=== PATIENT | male | born 1975 | race Caucasian/White ===

== ENCOUNTER 2022-01-16 16:57 | Inpatient (IN) | payer BC, MEDICARE ==
[~2022-01-16] VITALS: Ht 175.3 cm; Wt 143.3 kg
[~2022-01-16 16:57] MED LIST: ATORVASTATIN CA20 MG PO; BRILINTA 90 MG90 MG PO; COZAAR 25MG TAB25 MG PO; ECOTRIN81 MG PO; LOPRESSOR 25 MG25 MG PO; NICOTINE PATCH1 EAC1 TOP; PRINIVIL5 MG PO; PROTONIX40 MG PO
[2022-01-16 18:37] LABS: HEMOGLOBIN 12.6 gm/dl (14.0-17.5); RED BLOOD COUNT 5.03 M/UL (4.20-5.50); WHITE BLOOD COUNT 8.5 K/UL (4.5-11.0)
[2022-01-17 05:55] LABS: HEMOGLOBIN 13.2 gm/dl (14.0-17.5); RED BLOOD COUNT 5.26 M/UL (4.20-5.50); WHITE BLOOD COUNT 9.9 K/UL (4.5-11.0)
[2022-01-17 06:18] LABS: BUN/CREATININE RATIO 18 (0-10)
[2022-01-17] MEDS ORDERED: CLOPIDOGREL75 MG PO (12:11)
[2022-01-17] MEDS ORDERED: REPATHA SY140 MG/1 M SQ (12:14)
[2022-01-17] MEDS ORDERED: LOSARTAN POTASS25 MG PO (12:19)
[2022-01-17] MEDS ORDERED: METOPROLOL TART25 MG PO (12:19)
[2022-01-17] MEDS ORDERED: METHOCARBAMOL500 MG PO (12:20)
[2022-01-18 06:37] LABS: BUN/CREATININE RATIO 19 (0-10)
--- NOTE | 2022-01-18 13:51 | NUR ---
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
[2022-01-19 06:47] LABS: HEMOGLOBIN 13.1 gm/dl (14.0-17.5); RED BLOOD COUNT 5.26 M/UL (4.20-5.50); WHITE BLOOD COUNT 10.1 K/UL (4.5-11.0)
[2022-01-19 07:08] LABS: BUN/CREATININE RATIO 19 (0-10)
[2022-01-19] MEDS ORDERED: COZAAR 50MG TAB50 MG PO (12:38)
[2022-01-19] MEDS ORDERED: FUROSEMIDE40 MG PO (12:38)
[2022-01-19] MEDS ORDERED: ALDACTONE 25MG25 MG PO (12:38)
[2022-01-19] MEDS ORDERED: METOPROLOL SUC100 MG PO (12:38)
== END 2022-01-19 14:43 | disposition home or self-care (01) | DRG 291 ==
LOC: ER1 16:57 → CDU 20:40 → MED SURG 4 20:40
PROVIDERS: Internal Medicine; Physician Assistant; Preventive Medicine Occupational Medicine; ADMIT Internal Medicine
PROC: B24BZZZ Ultrasonography of Heart with Aorta (ICD-10-PCS; principal; 2022-01-17)
DX: I13.0 Hypertensive heart and chronic kidney disease with heart failure and stage 1 through stage 4 chronic kidney disease, or unspecified chronic kidney disease (principal); I50.43 Acute on chronic combined systolic (congestive) and diastolic (congestive) heart failure; Z20.822 Contact with and (suspected) exposure to COVID-19; I47.1 Supraventricular tachycardia; N17.9 Acute kidney failure, unspecified; Z68.42 Body mass index [BMI] 45.0-49.9, adult; E87.6 Hypokalemia; I27.20 Pulmonary hypertension, unspecified; G47.33 Obstructive sleep apnea (adult) (pediatric); I25.5 Ischemic cardiomyopathy; E78.5 Hyperlipidemia, unspecified; E66.01 Morbid (severe) obesity due to excess calories; I25.10 Atherosclerotic heart disease of native coronary artery without angina pectoris; F17.210 Nicotine dependence, cigarettes, uncomplicated; Z95.5 Presence of coronary angioplasty implant and graft; Z79.01 Long term (current) use of anticoagulants; Z79.82 Long term (current) use of aspirin; Z87.81 Personal history of (healed) traumatic fracture; Z98.890 Other specified postprocedural states; Z90.49 Acquired absence of other specified parts of digestive tract; Z82.49 Family history of ischemic heart disease and other diseases of the circulatory system; Z88.8 Allergy status to other drugs, medicaments and biological substances; I25.2 Old myocardial infarction
CPT/HCPCS: ECHO; 0240U; 36415; 36600; 71045; 80048; 80053; 81001; 82550; 82553; 82803; 83690; 83735; 83880; 84132; 84484; 85025; 85610; 85652; 85730; 86140; 87086; 93005; 93306; 94664; 94760; 96374; 96375; 99285; J1644; J1940; J3475